=== PATIENT | male | born 1970 | race African-American/Black ===

== ENCOUNTER 2022-04-16 15:54 | Inpatient (IN) | payer MEDICAID ==
[~2022-04-16] VITALS: Ht 200.7 cm; Wt 83.0 kg
[2022-04-16 17:27] LABS: BASOPHILS % 0.2 % (0.0-2.0); HEMATOCRIT. 34.7 % (42.0-52.0); HEMOGLOBIN. 11.6 g/dL (14.0-18.0); MEAN CORPUSCULAR HEMOGLOBIN 32.2 pg (28.0-32.0); MEAN CORPUSCULAR VOLUME 96.2 fL (80.0-94.0); MEAN PLATELET VOLUME 9.8 fl (7.4-10.4); MONOCYTES % 8.7 % (2.0-8.0); NEUTROPHILS % 75.1 % (40.0-76.0); PLATELET 83 x1000/uL (130-400); RED BLOOD CELL COUNT 3.61 mill/uL (4.7-6.1); RED CELL DISTRIBUTION WIDTH 13.9 % (11.6-14.6)
[2022-04-16 17:28] LABS: CHLORIDE 107 mEq/L (98-107)
[2022-04-16 17:35] LABS: INR 1.6; PROTHROMBIN TIME 16.3 sec (9.6-11.0)
[2022-04-16] MEDS ORDERED: ALBUTEROL (0.5%) 2.5MG/0.5ML NEB HHN ONE (18:15)
[2022-04-16] MEDS ORDERED: SODIUM BICARBONATE 8.4% 1 MEQ/ML 50ML SYR IV ONE (18:15)
[2022-04-16] MEDS ORDERED: MORPHINE SULFATE 4 MG/ML CPJ (NOT FOR IM USE) IV ONE (18:30)
[2022-04-16] MEDS ORDERED: ALBUTEROL (0.083%) 2.5MG/3ML NEB ONE ×2 (19:53→20:08)
[2022-04-16] MEDS ORDERED: SODIUM BICARBONATE 8.4% 1 MEQ/ML 50ML SYR IV NR (20:00)
[2022-04-16] MEDS ORDERED: OLANZAPINE 10 MG/VIAL IM ONE (21:00)
[2022-04-16] MEDS ORDERED: CEFTRIAXONE 1 G PREMIX 50 ML IV ONE (22:15)
[2022-04-16] MEDS ORDERED: METRONIDAZOLE 500 MG PREMIX 100 ML IV SCH (22:15)
[2022-04-16] MEDS: METRONIDAZOLE 500 MG PREMIX 100 ML IV SCH (23:22)
[2022-04-17] MEDS: LORAZEPAM 2MG/ML CPJ IV PRN ×2 (00:50→09:55)
[2022-04-17] MEDS ORDERED: HALOPERIDOL LACTATE 5MG/ML VIAL IM NR (03:30)
[2022-04-17] MEDS ORDERED: HALOPERIDOL LACTATE 5MG/ML VIAL IM PRN (05:00)
[2022-04-17] MEDS: METRONIDAZOLE 500 MG PREMIX 100 ML IV SCH ×2 (09:14→14:00)
[2022-04-17] MEDS ORDERED: IPRATROPIUM BROMIDE (0.02%) 0.5MG/2.5ML NEB HHN PRN (10:00)
[2022-04-17] MEDS ORDERED: SODIUM CHLORIDE 0.9% 1,000 ML IV SCH (10:00)
[2022-04-17] MEDS ORDERED: IPRATROPIUM/ALBUTEROL 0.5-3(2.5)MG/3ML NEB NEB PRN (10:00)
[2022-04-17] MEDS ORDERED: ONDANSETRON HCL 4MG/2ML INJ IV PRN (10:00)
[2022-04-17] MEDS ORDERED: ALBUTEROL (0.083%) 2.5MG/3ML NEB HHN PRN (10:00)
[2022-04-17] MEDS ORDERED: DEXTROSE 50% WATER 50ML SYRINGE IV PRN (10:15)
[2022-04-17] MEDS ORDERED: BLOOD SUGAR DIAGNOSTIC STRIP TEST SCH (11:30)
[2022-04-17] MEDS ORDERED: INSULIN LISPRO 100 UNITS/ML SUBCUT SCH (12:00)
[2022-04-17 14:00] VITALS: BP 124/47
== END 2022-04-17 18:10 | disposition left against medical advice (07) | DRG 254 ==
LOC: ER 15:54 → MICUSO 21:21 → EDBEDREQ 21:28 → EDBEDREQTM 21:28
PROVIDERS: ADMIT Internal Medicine; ATTEND Internal Medicine
DX: K92.1 Melena (principal); N17.9 Acute kidney failure, unspecified; D68.9 Coagulation defect, unspecified; E11.22 Type 2 diabetes mellitus with diabetic chronic kidney disease; E78.5 Hyperlipidemia, unspecified; D64.9 Anemia, unspecified; K80.20 Calculus of gallbladder without cholecystitis without obstruction; I12.9 Hypertensive chronic kidney disease with stage 1 through stage 4 chronic kidney disease, or unspecified chronic kidney disease; F32.A Depression, unspecified; Z53.29 Procedure and treatment not carried out because of patient's decision for other reasons; N18.9 Chronic kidney disease, unspecified; Z78.1 Physical restraint status; Z79.01 Long term (current) use of anticoagulants; Z79.82 Long term (current) use of aspirin; Z86.73 Personal history of transient ischemic attack (TIA), and cerebral infarction without residual deficits
CPT/HCPCS: 36415; 74176; 80053; 82962; 83605; 85025; 86850; 86870; 86900; 93005; 94640; 99291; J0696; J1630; J2060; J2270; J3490; J7030